=== PATIENT | male | born 1980 | race Caucasian/White ===

== ENCOUNTER 2020-04-27 22:21 | Inpatient (IN) | payer OTHER ==
[~2020-04-27] VITALS: Ht 170.2 cm; Wt 77.1 kg
[2020-04-27] MEDS ORDERED: ADVIL (22:37)
[2020-04-29] MEDS ORDERED: ADVIL200 MG (08:05)
== END 2020-05-10 18:42 | disposition home or self-care (01) | DRG 439 ==
LOC: ER 22:21 → SEC-K 04-28 15:38 → SURH 04-28 16:13 → SURG 05-07 16:03
PROVIDERS: ADMIT Internal Medicine; ATTEND Internal Medicine
PROC: BF37ZZZ Magnetic Resonance Imaging (MRI) of Pancreas (ICD-10-PCS; principal; 2020-04-28)
PROC: BW40ZZZ Ultrasonography of Abdomen (ICD-10-PCS; 2020-04-28)
PROC: 3E0436Z Introduction of Nutritional Substance into Central Vein, Percutaneous Approach (ICD-10-PCS; 2020-04-29)
PROC: BW30Y0Z Magnetic Resonance Imaging (MRI) of Abdomen using Other Contrast, Unenhanced and Enhanced (ICD-10-PCS; 2020-04-29)
PROC: 02HV33Z Insertion of Infusion Device into Superior Vena Cava, Percutaneous Approach (ICD-10-PCS; 2020-04-30)
PROC: 4A033R1 Measurement of Arterial Saturation, Peripheral, Percutaneous Approach (ICD-10-PCS; 2020-05-04)
PROC: BW21YZZ Computerized Tomography (CT Scan) of Abdomen and Pelvis using Other Contrast (ICD-10-PCS; 2020-05-04)
DX: K85.90 Acute pancreatitis without necrosis or infection, unspecified (principal); K83.09 Other cholangitis; R18.8 Other ascites; J98.11 Atelectasis; J90 Pleural effusion, not elsewhere classified; R09.02 Hypoxemia; R50.9 Fever, unspecified; R10.11 Right upper quadrant pain; Z20.828 Contact with and (suspected) exposure to other viral communicable diseases
CPT/HCPCS: 74175; 74185

== ENCOUNTER → 2023-06-30 08:05 | Outpatient (CLI) | payer OTHER ==
[~2023-06-30 08:05] MED LIST: ADVIL; ADVIL200 MG
== END | disposition home or self-care (01) ==
LOC: LAB 08:05
PROVIDERS: ATTEND Specialist
DX: K57.90 Diverticulosis of intestine, part unspecified, without perforation or abscess without bleeding (principal); Z12.11 Encounter for screening for malignant neoplasm of colon; Z12.5 Encounter for screening for malignant neoplasm of prostate; Z13.220 Encounter for screening for lipoid disorders; Z13.1 Encounter for screening for diabetes mellitus

== ENCOUNTER 2023-06-30 09:23 | Outpatient (CLI) | payer OTHER | END 2023-06-30 09:29 | disposition home or self-care (01) | LOC: TOM 09:23 | PROVIDERS: ATTEND Specialist | DX: R10.32 Left lower quadrant pain (principal) ==